=== PATIENT | male | born 1985 | race Caucasian/White ===

== ENCOUNTER 2023-03-30 16:54 | Inpatient (IN) | payer MEDICAID ==
[~2023-03-30] VITALS: Ht 182.9 cm; Wt 93.0 kg
[2023-03-30 17:00] VITALS: BP 136/82; PULSE 104; RESP 20; TEMP 97.2; O2SAT 100
[2023-03-30] MEDS ORDERED: MORPHINE SULFATE 4 MG/ML SYR IVP ONE ×2 (17:55→19:50)
[2023-03-30] MEDS ORDERED: NACL 0.9% 1,000 ML IV ONE (17:55)
[2023-03-30] MEDS ORDERED: ONDANSETRON 4 MG/2 ML VIAL IVP ONE (17:55)
[2023-03-30 18:32] LABS: BASOPHILS % (AUTO) 0.1 % (0.0-2.0); EOSINOPHILS # (AUTO) 0.2 K/uL (0-0.4); EOSINOPHILS % (AUTO) 1.1 % (0.0-4.0); HEMATOCRIT 48.4 % (36-52); HEMOGLOBIN 16.1 g/dL (12.0-18.0); LYMPHOCYTES # (AUTO) 1.3 K/uL (2.0-11.5); LYMPHOCYTES % (AUTO) 8.7 % (20.5-51.1); MEAN CORPUSCULAR HEMOGLOBIN 32 pg (27-31); MEAN CORPUSCULAR HGB CONC 33 g/dL (33-37); MEAN CORPUSCULAR VOLUME 94.8 fL (80-94); MONOCYTES # (AUTO) 0.8 K/uL (0.8-1.0); MONOCYTES % (AUTO) 5.5 % (1.7-9.3); NEUTROPHILS # (AUTO) 12.5 K/uL (1.8-7.7); NEUTROPHILS % (AUTO) 84.6 % (42.2-75.2); PLATELET COUNT (AUTO) 219 K/uL (140-450); RED CELL DISTRIBUTION WIDTH 14.1 % (11.6-13.7); WHITE BLOOD COUNT (AUTO) 14.8 K/uL (4.8-10.8)
[2023-03-30 18:52] LABS: ALBUMIN 3.8 g/dL (3.4-5.0); ANION GAP 9.6 (8-16); CALCIUM 8.9 mg/dL (8.5-10.1); CARBON DIOXIDE 31.1 mmol/L (21-32); CREATININE 1.1 mg/dL (0.6-1.3); POTASSIUM 3.7 mmol/L (3.5-5.1); TOTAL BILIRUBIN 1.1 mg/dL (0.0-1.0); TOTAL PROTEIN, SERUM 8.5 g/dL (6.4-8.2)
[2023-03-30 19:37] VITALS: O2SAT 99
[2023-03-30 21:39] VITALS: O2SAT 99
[2023-03-31] MEDS ORDERED: ONDANSETRON 4 MG/2 ML VIAL IM/IVP PRN (01:30)
[2023-03-31] MEDS ORDERED: guaiFENesin DM 200/20 MG-10 ML 10 ML UDC PO PRN (01:30)
[2023-03-31] MEDS ORDERED: HYDROcodone/APAP 7.5/325 MG 1 TAB PO PRN (01:30)
[2023-03-31] MEDS ORDERED: POTASSIUM CHLORIDE 10 MEQ TABER PO PRN (01:30)
[2023-03-31] MEDS ORDERED: NACL 0.9% 1,000 ML IV SCH (01:30)
[2023-03-31] MEDS ORDERED: ACETAMINOPHEN 325 MG TAB PO PRN (01:30)
[2023-03-31] MEDS ORDERED: ZOLPIDEM 5 MG TAB PO PRN (01:30)
[2023-03-31] MEDS ORDERED: DOCUSATE SODIUM 100 MG GELCAP PO PRN (01:30)
[2023-03-31 03:20] VITALS: PULSE 80; RESP 16; O2SAT 98
[2023-03-31 04:00] VITALS: BP 120/76; PULSE 68; PULSE 80; RESP 18; TEMP 97.6; O2SAT 98
[2023-03-31 06:54] LABS: EOSINOPHILS # (AUTO) 0.3 K/uL (0-0.4); EOSINOPHILS % (AUTO) 2.4 % (0.0-4.0); HEMATOCRIT 42.3 % (36-52); LYMPHOCYTES # (AUTO) 3.4 K/uL (2.0-11.5); LYMPHOCYTES % (AUTO) 30.4 % (20.5-51.1); MEAN CORPUSCULAR HEMOGLOBIN 32 pg (27-31); MEAN CORPUSCULAR HGB CONC 33 g/dL (33-37); MEAN CORPUSCULAR VOLUME 95.2 fL (80-94); MONOCYTES % (AUTO) 8.9 % (1.7-9.3); NEUTROPHILS # (AUTO) 6.5 K/uL (1.8-7.7); NEUTROPHILS % (AUTO) 58.3 % (42.2-75.2); PLATELET COUNT (AUTO) 201 K/uL (140-450); RED BLOOD CELL COUNT(AUTO) 4.44 MIL/uL (4.20-6.10); RED CELL DISTRIBUTION WIDTH 14.1 % (11.6-13.7); WHITE BLOOD COUNT (AUTO) 11.2 K/uL (4.8-10.8)
[2023-03-31 07:04] LABS: ALBUMIN 2.8 g/dL (3.4-5.0); ANION GAP 9.4 (8-16); CALCIUM 7.7 mg/dL (8.5-10.1); CARBON DIOXIDE 29.7 mmol/L (21-32); POTASSIUM 4.1 mmol/L (3.5-5.1); TOTAL BILIRUBIN 1.1 mg/dL (0.0-1.0); TOTAL PROTEIN, SERUM 6.6 g/dL (6.4-8.2)
[2023-03-31] MEDS ORDERED: DEXT 5% /NACL 0.9% 1,000 ML IV SCH (07:30)
[2023-03-31 08:00] VITALS: BP 120/76; PULSE 68; PULSE 80; RESP 18; TEMP 97.6; O2SAT 98
[2023-03-31 08:07] LABS: INR 1.17 (0.8-1.2); PROTHROMBIN TIME 12.2 secs (10.8-13.4)
[2023-03-31] MEDS ORDERED: PANTOPRAZOLE 40 MG TABEC PO SCH (09:00)
[2023-03-31 12:00] VITALS: BP 115/75; PULSE 63; PULSE 71; RESP 16; TEMP 98.4; O2SAT 98
[2023-03-31 15:55] VITALS: BP 115/75; RESP 20; TEMP 98.4
== END 2023-03-31 18:20 | disposition home or self-care (01) | DRG 247 ==
LOC: MED 16:54 → MTU 03-31 01:32
PROVIDERS: ADMIT Student in an Organized Health Care Education/Training Program; ATTEND Student in an Organized Health Care Education/Training Program
DX: K56.7 Ileus, unspecified (principal); E44.0 Moderate protein-calorie malnutrition; I50.9 Heart failure, unspecified; K74.60 Unspecified cirrhosis of liver; I11.0 Hypertensive heart disease with heart failure; D72.829 Elevated white blood cell count, unspecified; E80.6 Other disorders of bilirubin metabolism; F10.10 Alcohol abuse, uncomplicated; Y90.9 Presence of alcohol in blood, level not specified; Z68.27 Body mass index [BMI] 27.0-27.9, adult
CPT/HCPCS: 36415; 71045; 74250; 80053; 82550; 83605; 83690; 83880; 85025; 85610; 87040; 87081; 96374; 96375; 96376; 99285; J2270; J2405; Q9967

== ENCOUNTER 2023-04-08 03:30 | Emergency (ER) | payer MEDICAID ==
[~2023-04-08] VITALS: Ht 182.9 cm; Wt 93.0 kg
[2023-04-08 03:45] VITALS: BP 118/78; PULSE 77; RESP 16; TEMP 97.4; O2SAT 100
[2023-04-08] MEDS ORDERED: KETOROLAC 30 MG/ML VIAL IVP ONE (04:25)
[2023-04-08] MEDS ORDERED: NACL 0.9% 1,000 ML IV ONE (05:00)
[2023-04-08 05:16] LABS: BASOPHILS # (AUTO) 0.1 K/uL (0.00-0.22); EOSINOPHILS # (AUTO) 0.4 K/uL (0-0.4); HEMATOCRIT 43.4 % (36-52); HEMOGLOBIN 14.5 g/dL (12.0-18.0); LYMPHOCYTES # (AUTO) 3.6 K/uL (2.0-11.5); LYMPHOCYTES % (AUTO) 44.7 % (20.5-51.1); MEAN CORPUSCULAR HEMOGLOBIN 32 pg (27-31); MEAN CORPUSCULAR HGB CONC 34 g/dL (33-37); MEAN CORPUSCULAR VOLUME 95.5 fL (80-94); MONOCYTES # (AUTO) 0.7 K/uL (0.8-1.0); MONOCYTES % (AUTO) 8.4 % (1.7-9.3); NEUTROPHILS # (AUTO) 3.3 K/uL (1.8-7.7); NEUTROPHILS % (AUTO) 40.9 % (42.2-75.2); PLATELET COUNT (AUTO) 228 K/uL (140-450); RED BLOOD CELL COUNT(AUTO) 4.54 MIL/uL (4.20-6.10); RED CELL DISTRIBUTION WIDTH 14.3 % (11.6-13.7)
[2023-04-08 05:40] LABS: ALBUMIN 3.5 g/dL (3.4-5.0); TOTAL BILIRUBIN 0.4 mg/dL (0.0-1.0); TOTAL PROTEIN, SERUM 7.7 g/dL (6.4-8.2)
[2023-04-08 06:49] LABS: ANION GAP 9.2 (8-16); CALCIUM 9.1 mg/dL (8.5-10.1); CARBON DIOXIDE 30.1 mmol/L (21-32); CREATININE 0.9 mg/dL (0.6-1.3); POTASSIUM 4.3 mmol/L (3.5-5.1)
[2023-04-08 07:55] LABS: BILIRUBIN,URINE NEGATIVE (NEGATIVE); BLOOD, URINE NEGATIVE (NEGATIVE); LEUKOCYTE ESTERASE ,URINE NEGATIVE (NEGATIVE); NITRITE, URINE NEGATIVE (NEGATIVE); PROTEIN,URINE NEGATIVE (NEGATIVE); UGLUCOSE NEGATIVE (NEGATIVE)
[2023-04-08 07:57] LABS: APPEARANCE,URINE CLEAR (CLEAR)
[2023-04-08 07:58] LABS: COLOR,URINE YELLOW (YELLOW)
== END 2023-04-08 08:20 | disposition home or self-care (01) ==
LOC: MED 03:30
DX: R10.11 Right upper quadrant pain (principal); R10.12 Left upper quadrant pain; R11.0 Nausea; K56.609 Unspecified intestinal obstruction, unspecified as to partial versus complete obstruction; Z79.899 Other long term (current) drug therapy
CPT/HCPCS: 36415; 74176; 80053; 81003; 83690; 85025; 96361; 96374; 99285; J1885; J7030

== ENCOUNTER 2023-09-16 02:00 | Emergency (ER) | payer MEDICAID ==
[~2023-09-16] VITALS: Ht 182.9 cm; Wt 93.0 kg
[2023-09-16 02:11] VITALS: BP 112/62; PULSE 86; RESP 16; TEMP 97; O2SAT 99
[2023-09-16] MEDS: KETOROLAC 30 MG/ML VIAL IM ONE (03:20)
[2023-09-16] MEDS ORDERED: ACET-10509 PO (05:36)
[2023-09-16 06:39] VITALS: O2SAT 99
== END 2023-09-16 06:43 | disposition home or self-care (01) ==
LOC: MED 02:00
DX: S70.01XA Contusion of right hip, initial encounter (principal); Z79.1 Long term (current) use of non-steroidal anti-inflammatories (NSAID); V09.20XA Pedestrian injured in traffic accident involving unspecified motor vehicles, initial encounter; Y93.01 Activity, walking, marching and hiking; Y92.410 Unspecified street and highway as the place of occurrence of the external cause; Y99.8 Other external cause status
CPT/HCPCS: 73502; 96372; 99284; J1885

== ENCOUNTER 2023-09-23 01:24 | Inpatient (IN) | payer MEDICAID ==
[~2023-09-23] VITALS: Ht 182.9 cm; Wt 93.0 kg
[2023-09-23] VITALS (7 sets, daily range): BP systolic 96–114; BP diastolic 62–80; PULSE 65–90; RESP 18–22; TEMP 97.2–97.8; O2SAT 96–98
[~2023-09-23 01:24] MED LIST: ACET-10509 PO
[2023-09-23 01:58] LABS: BASOPHILS # (AUTO) 0.1 K/uL (0.00-0.22); BASOPHILS % (AUTO) 0.9 % (0.0-2.0); EOSINOPHILS # (AUTO) 0.3 K/uL (0-0.4); HEMATOCRIT 42.1 % (36-52); HEMOGLOBIN 14.1 g/dL (12.0-18.0); LYMPHOCYTES % (AUTO) 51.2 % (20.5-51.1); MEAN CORPUSCULAR HEMOGLOBIN 32 pg (27-31); MEAN CORPUSCULAR HGB CONC 34 g/dL (33-37); MEAN CORPUSCULAR VOLUME 94.2 fL (80-94); MONOCYTES # (AUTO) 0.8 K/uL (0.8-1.0); MONOCYTES % (AUTO) 8.1 % (1.7-9.3); NEUTROPHILS # (AUTO) 3.6 K/uL (1.8-7.7); NEUTROPHILS % (AUTO) 36.8 % (42.2-75.2); PLATELET COUNT (AUTO) 303 K/uL (140-450); RED BLOOD CELL COUNT(AUTO) 4.47 MIL/uL (4.20-6.10); RED CELL DISTRIBUTION WIDTH 13.9 % (11.6-13.7); WHITE BLOOD COUNT (AUTO) 9.7 K/uL (4.8-10.8)
[2023-09-23 02:06] LABS: ANION GAP 10.9 (8-16); CALCIUM 8.9 mg/dL (8.5-10.1); CARBON DIOXIDE 28.8 mmol/L (21-32); CREATININE 1.2 mg/dL (0.6-1.3); POTASSIUM 3.7 mmol/L (3.5-5.1)
[2023-09-23] MEDS: NACL 0.9% 1,000 ML IV SCH ×2 (02:07→03:05)
[2023-09-23] MEDS: ONDANSETRON 4 MG/2 ML VIAL IVP ONE (02:07)
[2023-09-23] MEDS: KETOROLAC 30 MG/ML VIAL IVP ONE (02:07)
[2023-09-23 02:32] LABS: ALBUMIN 3.5 g/dL (3.4-5.0); BILIRUBIN,DIRECT 0.1 mg/dL (0.0-0.3); TOTAL BILIRUBIN 0.4 mg/dL (0.0-1.0); TOTAL PROTEIN, SERUM 7.9 g/dL (6.4-8.2)
[2023-09-23] MEDS ORDERED: ONDANSETRON 4 MG/2 ML VIAL IVP PRN ×2 (03:05→11:00)
[2023-09-23 07:13] LABS: BASOPHILS % (AUTO) 0.4 % (0.0-2.0); EOSINOPHILS # (AUTO) 0.4 K/uL (0-0.4); EOSINOPHILS % (AUTO) 4.5 % (0.0-4.0); HEMATOCRIT 38.7 % (36-52); HEMOGLOBIN 12.7 g/dL (12.0-18.0); LYMPHOCYTES # (AUTO) 4.4 K/uL (2.0-11.5); LYMPHOCYTES % (AUTO) 54.7 % (20.5-51.1); MEAN CORPUSCULAR HEMOGLOBIN 31 pg (27-31); MEAN CORPUSCULAR HGB CONC 33 g/dL (33-37); MEAN CORPUSCULAR VOLUME 95.3 fL (80-94); MONOCYTES # (AUTO) 0.7 K/uL (0.8-1.0); MONOCYTES % (AUTO) 8.8 % (1.7-9.3); NEUTROPHILS # (AUTO) 2.5 K/uL (1.8-7.7); NEUTROPHILS % (AUTO) 31.6 % (42.2-75.2); PLATELET COUNT (AUTO) 256 K/uL (140-450); RED BLOOD CELL COUNT(AUTO) 4.06 MIL/uL (4.20-6.10); RED CELL DISTRIBUTION WIDTH 13.8 % (11.6-13.7)
[2023-09-23 07:48] LABS: ANION GAP 12.1 (8-16); CARBON DIOXIDE 26.8 mmol/L (21-32); POTASSIUM 3.9 mmol/L (3.5-5.1); TOTAL BILIRUBIN 0.5 mg/dL (0.0-1.0); TOTAL PROTEIN, SERUM 6.7 g/dL (6.4-8.2)
[2023-09-23] MEDS ORDERED: MAG SULF 2000 MG/WATER PREMIX 50 ML IV PRN (11:00)
[2023-09-23] MEDS ORDERED: MELATONIN 3 MG TAB PO PRN (11:00)
[2023-09-23] MEDS ORDERED: MORPHINE SULFATE 2 MG/ML SYR IVP PRN (11:00)
[2023-09-23] MEDS ORDERED: POLYETHYLENE GLYCOL 17 GM/PKT PO PRN (11:00)
[2023-09-23] MEDS ORDERED: KCL 20 MEQ IN 100 mL PREMIX 200 ML IV PRN (11:00)
[2023-09-23] MEDS ORDERED: HYDROcodone/APAP 5/325 MG 1 TAB TAB PO PRN (11:00)
[2023-09-23] MEDS ORDERED: ACETAMINOPHEN 325 MG TAB PO PRN (11:00)
[2023-09-23] MEDS: PANTOPRAZOLE 40 MG INJ VIAL IVP SCH (11:05)
== END 2023-09-23 17:10 | disposition home or self-care (01) | DRG 816 ==
LOC: MED 01:24 → INTOOBSV 03:08 → MTU 03:08 → OBSVTOIN 13:25
PROVIDERS: ADMIT Family Medicine; ATTEND Family Medicine
DX: T54.91XA Toxic effect of unspecified corrosive substance, accidental (unintentional), initial encounter (principal); T49.0X1A Poisoning by local antifungal, anti-infective and anti-inflammatory drugs, accidental (unintentional), initial encounter; Y92.89 Other specified places as the place of occurrence of the external cause
CPT/HCPCS: 36415; 70450; 71045; 80048; 80053; 80076; 83690; 85025; 87081; 96374; 96375; 99285; C9113; J1885; J2405; Q0092